=== PATIENT | male | born 1975 | race Caucasian/White ===

== ENCOUNTER 2017-03-25 22:52 | Emergency (ER) | payer MEDICAID ==
[~2017-03-25] VITALS: Ht 177.8 cm; Wt 80.7 kg
[~2017-03-25 22:52] MED LIST: NORCO 5-325 TA1 EACH PO
[2017-03-25] MEDS ORDERED: AUGMENTIN 875-1 EACH PO (23:20)
== END 2017-03-25 23:30 | disposition home or self-care (01) ==
LOC: ED 22:52
DX: S61.452A Open bite of left hand, initial encounter (principal); F17.200 Nicotine dependence, unspecified, uncomplicated; W54.0XXA Bitten by dog, initial encounter; Z91.030 Bee allergy status
CPT/HCPCS: 99283

== ENCOUNTER 2019-04-22 15:51 | Emergency (ER) | payer OTHER ==
[~2019-04-22] VITALS: Ht 177.8 cm; Wt 86.2 kg
[~2019-04-22 15:51] MED LIST changes: +AUGMENTIN 875-1 EACH PO
== END 2019-04-22 16:47 | disposition home or self-care (01) ==
LOC: ED 15:51
DX: G56.03 Carpal tunnel syndrome, bilateral upper limbs (principal); F17.200 Nicotine dependence, unspecified, uncomplicated; Z91.038 Other insect allergy status
CPT/HCPCS: 99283

== ENCOUNTER 2024-09-02 09:17 | Emergency (ER) | payer OTHER ==
[~2024-09-02] VITALS: Ht 177.8 cm; Wt 87.0 kg
[2024-09-02 09:45] LABS: BASOPHILS 1.3 % (0.2-1.2); EOSINOPHILS 1.6 % (0.8-7.0); LYMPHOCYTES 20.3 % (21.8-53.1); MCH 32.4 PG (25.7-32.2); MCHC 34.0 g/dL (32.3-36.5); MCV 95.2 fL (79.0-92.2); MONOCYTES 10.5 % (5.3-12.2); NEUTROPHILS 66.0 % (34.0-67.9); RBC 4.14 M/uL (4.63-6.08)
[2024-09-02 10:06] LABS: ALCOHOL, MEDICAL <3 ng/dL (<3); ALT (SGPT) 46 U/L (14-59); AST (SGOT) 34 U/L (15-37); GLOMERULAR FILTRATION RATE,EST 87 mL/min (>60); PROTEIN, TOTAL 6.7 g/dL (6.4-8.2); UREA NITROGEN 12 mg/dL (7-18)
[2024-09-02] MEDS ORDERED: SODIUM CHLORIDE 0.9% 1,000 ML IV PRN (10:30)
[2024-09-02 11:15] VITALS: BP 132/81
[2024-09-02 11:24] LABS: BLOOD/HGB, URINE NEGATIVE (Negative); KETONE, URINE NEGATIVE (Negative); LEUK ESTERASE, URINE NEGATIVE (negative); NITRITE, URINE NEGATIVE (negative)
[2024-09-02 11:32] LABS: EPITHELIAL CELLS, URINE 0 /lpf (0-1+)
[2024-09-02 11:33] LABS: BACTERIA, URINE NONE SEEN /hpf (negative); CASTS, URINE NONE SEEN \\lpf; CRYSTALS, URINE NONE SEEN (0-1+); REFLEX CULTURE, URINE No (No)
[2024-09-02 11:39] LABS: AMPHETAMINES, URINE POSITIVE (NEGATIVE); BARBITURATES, URINE NEGATIVE (NEGATIVE); BENZODIAZEPINE, URINE NEGATIVE (NEGATIVE); CANNABINOID, URINE POSITIVE (NEGATIVE); COCAINE, URINE NEGATIVE (NEGATIVE); ECSTASY, URINE POSITIVE (NEGATIVE); FENTANYL, URINE POSITIVE (NEGATIVE); METHADONE, URINE NEGATIVE (NEGATIVE); OPIATES, URINE NEGATIVE (NEGATIVE); OXYCODONE, URINE NEGATIVE (NEGATIVE); PHENCYCLIDINE, URINE NEGATIVE (NEGATIVE)
--- NOTE | 2024-09-03 12:58 | EKG ---
[facility] [address] [facility] [place], [place] [address] Signed Normal sinus rhythm Normal ECG Confirmed by Ladonna Garcia DO ([id number]) on 09/03/2024 12:58:16 PM Electronically Signed By: LADONNA GARCIA DO 09/03/24 1258 PATIENT NAME: HERIBERTO CAMARGO Electrocardiogram DATE OF : 73 PHYSICIAN: LADONNA GARCIA DO REPORT #: [id number] REPORT IS CONFIDENTIAL AND NOT TO BE RELEASED WITHOUT AUTHORIZATION
== END 2024-09-02 11:15 | disposition home or self-care (01) ==
LOC: ED 09:17
PROVIDERS: Emergency Medicine
DX: L55.9 Sunburn, unspecified (principal); F17.200 Nicotine dependence, unspecified, uncomplicated; Z91.030 Bee allergy status
CPT/HCPCS: 36415; 70450; 71045; 80053; 80307; 81001; 85025; 93005; 93010; 99285-25; G0480; J7030